=== PATIENT | female | born 1965 | race Caucasian/White ===

== ENCOUNTER → 2023-04-25 14:10 | Outpatient (REF) | payer OTHER, SELFPAY | LOC: WDC 14:10 | PROVIDERS: ATTENDING PHYSICIAN Nurse Practitioner Adult Health | DX: Z12.31 Encounter for screening mammogram for malignant neoplasm of breast (principal) | CPT/HCPCS: 77063; 77067 ==

== ENCOUNTER → 2023-06-06 10:10 | Outpatient (REF) | payer OTHER, SELFPAY | LOC: RAD 10:10 | PROVIDERS: ATTENDING PHYSICIAN Registered Nurse | DX: J18.9 Pneumonia, unspecified organism (principal) | CPT/HCPCS: 71046 ==

== ENCOUNTER → 2023-07-22 07:48 | Outpatient (REF) | payer OTHER, SELFPAY | LOC: RAD 07:48 | PROVIDERS: ATTENDING PHYSICIAN Registered Nurse | DX: J18.9 Pneumonia, unspecified organism (principal) | CPT/HCPCS: 71046 ==

== ENCOUNTER → 2024-03-30 15:43 | Outpatient (REF) | payer OTHER, SELFPAY | LOC: HWRAD 15:43 | PROVIDERS: ATTENDING PHYSICIAN Chiropractor; FAMILY PHYSICIAN Nurse Practitioner Adult Health | DX: M54.12 Radiculopathy, cervical region (principal); M62.40 Contracture of muscle, unspecified site; M99.01 Segmental and somatic dysfunction of cervical region; M99.02 Segmental and somatic dysfunction of thoracic region; M53.2X7 Spinal instabilities, lumbosacral region | CPT/HCPCS: 72050; 72072; 72110 ==

== ENCOUNTER → 2024-04-08 15:02 | Outpatient (REF) | payer OTHER, SELFPAY | LOC: RAD 15:02 | PROVIDERS: ATTENDING PHYSICIAN Nurse Practitioner Adult Health | DX: I65.22 Occlusion and stenosis of left carotid artery (principal); R42 Dizziness and giddiness | CPT/HCPCS: 93880 ==

== ENCOUNTER → 2024-04-30 13:57 | Outpatient (REF) | payer OTHER, SELFPAY | LOC: WDC 13:57 | PROVIDERS: ATTENDING PHYSICIAN Nurse Practitioner Adult Health | DX: Z12.31 Encounter for screening mammogram for malignant neoplasm of breast (principal) | CPT/HCPCS: 77063; 77067 ==

== ENCOUNTER 2024-09-07 08:28 | Inpatient (IN) | payer OTHER, SELFPAY ==
[2024-09-07] VITALS (19 sets, daily range): BP systolic 14–185; BP diastolic 49–100; BMI 27.7
--- NOTE | 2024-09-07 03:57 | ED.GENMED ---
History of Present Illness
<Palomo Lopez, DO - Last Filed: 09/07/24 03:59>
General
Chief Complaint: Abdominal Pain
Source: patient
Exam Limitations: none
Time Seen by Provider: 09/07/24 03:50
History of Present Illness
History of Present Illness:
See MDM
Past History
<Palomo Lopez, DO - Last Filed: 09/07/24 03:59>
Past History
ED Past Medical History: Hypercholesterolemia and Other (Endometriosis, Diverticulitis, C-diff, Menningitis); Negative IDDM or NIDDM
ED Past Surgical History: Bowel resection, Gynecological (OOphorectom with tube on Left) and Other (Uterine ablation, hernia)
Social History
Tobacco: Smoker
Alcohol: Occasional
Drug: None
Personal:
Living: with family
Employment: Employed
Family History
Family History: Hypertension
Phy Exam
<Palomo Lopez, DO - Last Filed: 09/07/24 03:59>
Physical Exam
Physical Exam:
See MDM
Course
<Palomo Lopez, DO - Last Filed: 09/07/24 03:59>
Orders/Labs/Results
Orders:
Orders
09/07/24 03:54
CT Abd/pelvis W Iv Cont Urgent
Comment:
Reason For Exam: upper abd pain, nausea
0.9% Sodium Chloride 1000 ml [Nss] 1,000 ml IV BOLUS
HYDROmorphone [Dilaudid] 0.5 mg IV NOW STA
Ondansetron Injectable [Zofran] 4 mg IV NOW STA
09/07/24 05:18
Complete Blood Count/With Diff Urgent
Comprehensive Metabolic Panel Urgent
Lipase Urgent
HYDROmorphone [Dilaudid] 1 mg IV NOW STA
09/07/24 Breakfast
NPO
Allow oral meds: Yes
Allow clear liquids: Sips of Clears
09/07/24 07:19
Ketorolac [Toradol] 15 mg IV NOW STA
Pantoprazole [Protonix IV] 40 mg IV NOW STA
09/07/24 07:49
Admit/Transfer Patient As Directed
Co-Sign Provider:
Level of Care: Inpatient admission
Assign to:: Medical/Surgical
Physician / Group: Cleop[facility]
Diagnosis: Intractable abdominal pain
Reason for Hospitalization: GI consult, pain relief.
Expected length of stay greater than two midnights?: Yes
ELOS- Estimated Length of Stay in days: 2
I certify the patient meets the requirements for IP care: Yes
PRN Pain Medication Management As Directed
May give lesser potent ordered pain med per pt: Yes
preference::
Protocol:: Medication orders for pain may be administered in a
manner that supports deferring to patient preference
when the pt is:
- Requesting an ordered lesser potent pain medication.
Least to most potent pain medications are defined
as: acetaminophen < NSAID < tramadol < opioids
(morphine, oxycodone, hydromorphone).
- Requesting a lesser dose of the same medication IF
ORDERED.
- Requesting a less intrusive route of administration
if both routes are prescribed by the provider (PO <
IV).
09/07/24 07:50
Code Status As Directed
Resuscitation Status: Full Code
09/07/24 09:01
HYDROmorphone [Dilaudid] 1 mg IV Q3HPRN PRN
Lactated Ringers [Lr] 1,000 ml IV 120 mls/hr
Ondansetron Injectable [Zofran] 4 mg IV Q6HPRN PRN
09/07/24 09:01
GASTROINTESTINAL CONSULT Routine
Consulting Provider: Meaghan Bai
Was physician already notified: Yes
Activity As Directed
Activity Level: Ambulate
DX Deep Vein Thrombosis Video Routine
09/07/24 18:00
Enoxaparin Sodium [Lovenox] 40 mg SC QPM
09/07/24 20:00
Pantoprazole [Protonix IV] 40 mg IV Q12
09/08/24 06:00
Comprehensive Metabolic Panel IN AM
Abnormal Lab Results
09/07/24
05:18
MPV 10.5 H fL
(7.4-10.4)
Absolute Neuts (auto) 7.1 H 10^3/uL
(1.4-6.5)
Absolute Monos (auto) 0.8 H 10^3/uL
(0.1-0.6)
Carbon Dioxide 20 L mmol/L
(22-30)
BUN 18 H mg/dl
(7-17)
Glucose 100 H mg/dl
(70-99)
09/07/24 05:18
09/07/24 05:18
Vital Signs
Initial and Last Documented VS:
Initial Vital Signs
Pulse Resp BP Pulse Ox
90 28 178/78 100
09/07/24 03:27 09/07/24 03:27 09/07/24 03:27 09/07/24 03:27
Last Documented Vital Signs
Pulse Resp BP Pulse Ox
104 16 121/69 97
09/07/24 10:02 09/07/24 10:02 09/07/24 10:02 09/07/24 10:02
<Bill Adhikari MD - Last Filed: 09/07/24 10:48>
Orders/Labs/Results
Orders:
Orders
09/07/24 03:54
CT Abd/pelvis W Iv Cont Urgent
Comment:
Reason For Exam: upper abd pain, nausea
0.9% Sodium Chloride 1000 ml [Nss] 1,000 ml IV BOLUS
HYDROmorphone [Dilaudid] 0.5 mg IV NOW STA
Ondansetron Injectable [Zofran] 4 mg IV NOW STA
09/07/24 05:18
Complete Blood Count/With Diff Urgent
Comprehensive Metabolic Panel Urgent
Lipase Urgent
HYDROmorphone [Dilaudid] 1 mg IV NOW STA
09/07/24 Breakfast
NPO
Allow oral meds: Yes
Allow clear liquids: Sips of Clears
09/07/24 07:19
Ketorolac [Toradol] 15 mg IV NOW STA
Pantoprazole [Protonix IV] 40 mg IV NOW STA
09/07/24 07:49
Admit/Transfer Patient As Directed
Co-Sign Provider:
Level of Care: Inpatient admission
Assign to:: Medical/Surgical
Physician / Group: Cleopatra
Diagnosis: Intractable abdominal pain
Reason for Hospitalization: GI consult, pain relief.
Expected length of stay greater than two midnights?: Yes
ELOS- Estimated Length of Stay in days: 2
I certify the patient meets the requirements for IP care: Yes
PRN Pain Medication Management As Directed
May give lesser potent ordered pain med per pt: Yes
preference::
Protocol:: Medication orders for pain may be administered in a
manner that supports deferring to patient preference
when the pt is:
- Requesting an ordered lesser potent pain medication.
Least to most potent pain medications are defined
as: acetaminophen < NSAID < tramadol < opioids
(morphine, oxycodone, hydromorphone).
- Requesting a lesser dose of the same medication IF
ORDERED.
- Requesting a less intrusive route of administration
if both routes are prescribed by the provider (PO <
IV).
09/07/24 07:50
Code Status As Directed
Resuscitation Status: Full Code
09/07/24 09:01
HYDROmorphone [Dilaudid] 1 mg IV Q3HPRN PRN
Lactated Ringers [Lr] 1,000 ml IV 120 mls/hr
Ondansetron Injectable [Zofran] 4 mg IV Q6HPRN PRN
09/07/24 09:01
GASTROINTESTINAL CONSULT Routine
Consulting Provider: Meaghan Bai
Was physician already notified: Yes
Activity As Directed
Activity Level: Ambulate
DX Deep Vein Thrombosis Video Routine
09/07/24 18:00
Enoxaparin Sodium [Lovenox] 40 mg SC QPM
09/07/24 20:00
Pantoprazole [Protonix IV] 40 mg IV Q12
09/08/24 06:00
Comprehensive Metabolic Panel IN AM
Abnormal Lab Results
09/07/24
05:18
MPV 10.5 H fL
(7.4-10.4)
Absolute Neuts (auto) 7.1 H 10^3/uL
(1.4-6.5)
Absolute Monos (auto) 0.8 H 10^3/uL
(0.1-0.6)
Carbon Dioxide 20 L mmol/L
(22-30)
BUN 18 H mg/dl
(7-17)
Glucose 100 H mg/dl
(70-99)
09/07/24 05:18
09/07/24 05:18
Vital Signs
Initial and Last Documented VS:
Initial Vital Signs
Pulse Resp BP Pulse Ox
90 28 178/78 100
09/07/24 03:27 09/07/24 03:27 09/07/24 03:27 09/07/24 03:27
Last Documented Vital Signs
Pulse Resp BP Pulse Ox
104 16 121/69 97
09/07/24 10:02 09/07/24 10:02 09/07/24 10:02 09/07/24 10:02
<Palomo Lopez, - Last Filed: 09/07/24 03:59>
MDM/Problems Addressed
Differential Diagnosis Includes:
Note:
CHIEF COMPLAINT(S)
Abdominal pain.
HISTORY OF PRESENT ILLNESS
The patient is a 58-year-old female presenting with severe abdominal pain. She reported the onset of the pain around 8:30 PM. The patient went to bed at 9:00 PM and fell asleep briefly for about 15 minutes before waking up due to intense pain which
has not subsided since. She describes this episode as significantly worse than a previous similar experience post-surgery three years ago for diverticulitis. The pain is described as a higher abdominal pain. She denies passing gas and reports severe
nausea but has not vomited.
PAST SURGICAL HISTORY
Diverticulitis removed with no current known complications until this episode.
PHYSICAL EXAM
General: Mildly uncomfortable
HEENT: protecting airway
Neck: appears supple
CV: No evidence of cyanosis
Resp: No accessory muscle use
Abd: Non-distended. Generalized abdominal pain. No rebound
Extremities: No deformities
Neuro: alert
Psych: uncomfortable and anxious
Skin: Intact
PLAN
Administer pain medication (Dilaudid) and antiemetic (Ondansetron). Initiate fluids. Schedule a computed tomography (CT) scan to evaluate for possible intestinal blockage.
DIFFERENTIAL DIAGNOSIS
The Differential Diagnosis includes, in no particular order and is not limited to:
1. Intestinal blockage
2. Adhesions from past surgery
3. Small bowel obstruction
4. Gastritis
5. Peptic ulcer disease
6. Pancreatitis
7. Gastroenteritis
8. Diverticulitis
9. Bowel ischemia
10. Gallstones
<Palomo Lopez, - Last Filed: 09/07/24 03:59>
*Pulse Oximetry
SaO2: 100
Oxygen Mode of Delivery: Room air
<Bill Adhikari MD - Last Filed: 09/07/24 10:48>
*Pulse Oximetry
Patient hypoxic: no
*Critical Care Note
Total Time (30-74mins, 75-104mins- exclusive of procedures): Not Applicable
<Bill Adhikari MD - Last Filed: 09/07/24 10:48>
Update Note
Update Note:
CT abdomen pelvis report reviewed and discussed with patient. Despite unremarkable CT findings, patient experiencing recurrent significant abdominal pain, requiring multiple medications. Differential diagnosis still includes potential early bowel
obstruction versus severe gastritis versus ulcer versus other etiology. As such, patient will be admitted for further evaluation treatment. Patient may benefit from seeing GI for potential endoscopy, if symptoms persist.
ED Attending Note
<Palomo Lopez DO - Last Filed: 09/07/24 03:59>
-
Portions of this chart may have been created with voice recognition software.� Occasional wrong word or��sound alike� substitutions may have occurred due to the inherent limitations of voice recognition software.
Discharge Plan
Departure
Patient Disposition: Admit
Date of Disposition: 09/07/24
Time of Disposition: 07:26
Admit to: Med/Surg
Presentation/result/management discussed w/ accepting MD/DO: Hospitalist
Discharge Problem:
Intractable lower abdominal pain
Interventions
Interventions:
*Risk Screen - Suicide Last Done: 09/07/24 03:27
*General Assessment Last Done: 09/07/24 03:44
*Neglect/Abuse Screening Last Done: 09/07/24 03:27
*ED- Fall Risk Assessment Last Done: 09/07/24 03:44
*ED COVID-19 Vaccine History Last Done: 09/07/24 05:48
RO-Tvqlfo-Dbbpxtfoai Assessment Last Done: 09/07/24 03:46
[2024-09-07] MEDS: DILAUDID 0.5 MG IV (04:00)
[2024-09-07] MEDS: NSS 1000 IV (04:00)
[2024-09-07] MEDS: ZOFRAN 4 MG IV ×3 (04:00→19:19)
[2024-09-07] MEDS: DILAUDID 1 MG IV ×5 (05:20→23:25)
[2024-09-07 05:30] LABS: Hematocrit 38.9 % (37.0-47.0); Hemoglobin 13.5 g/dL (12.0-16.0); Mean Corp Hgb Conc. 34.7 g/dL (33.0-37.0); Mean Corpuscular Volume 88.6 fL (81.0-99.0); Nucleated Red Blood Cells % 0 %; Platelet Count 243 10^3/uL (130-400); Red Cell Dist. Width 12.8 % (11.5-14.5)
[2024-09-07 06:11] LABS: ALT (SGPT) 17 U/L (0-35); AST (SGOT) 26 U/L (14-36); Albumin 4.7 g/dl (3.5-5.0); Alkaline Phosphatase 61 U/L (38-126); Blood Urea Nitrogen 18 mg/dl (7-17); Calcium 9.6 mg/dl (8.4-10.2); Carbon Dioxide 20 mmol/L (22-30); Chloride 106 mmol/L (98-107); Estimated Creatinine Clearance 72 ml/min; Glucose 100 mg/dl (70-99); Lipase 106 U/L (23-300); Potassium 4.4 mmol/L (3.5-5.1); Sodium 137 mmol/L (135-145); Total Protein 7.4 g/dl (6.3-8.2); eGFR > 60.00
[2024-09-07] MEDS: TORADOL 15 MG IV (07:47)
[2024-09-07] MEDS: PROTONIX IV 40 MG IV ×2 (07:47→19:18)
--- NOTE | 2024-09-07 07:53 | HPS.HSE ---
Family Physician
-
Family Physician: JOHN Giordano
Chief Complaint
-
Severe abdominal pain, nausea
History of Present Illness
58-year-old female was in her usual state of health yesterday but developed sudden onset of epigastric abdominal pain and nausea around 8 to 9 PM last night. This was about 2 to 3 hours after eating dinner. She did a core workout after dinner and
then 45 minutes later started having abdominal pain with nausea.
Denies similar symptoms in the past. Denies melena or hematochezia. Vomited in the emergency room after IV Dilaudid, but did not vomit at home.
Denies use of NSAIDs.
Medical History
Past Medical History
Past Medical History: Reports Other
Additional Past Medical History:
GERD
Colon polyps
Diverticulosis
Internal hemorrhoids
Erosive gastropathy
Essential hypertension
Mixed hyperlipidemia
Seasonal allergies
Bilateral carotid stenosis
Anxiety disorder
Past Surgical History: Reports Other
Additional Past Surgical History:
Robotic sigmoid colectomy -June 2022
Left-sided salpingo-oophorectomy
Inguinal hernia repair
Uterine ablation
Social History
Tobacco: Smoker
Alcohol: Occasional
Drug: None
Family History
Family History: Not pertinent
Allergies / Home Medications
Allergies reflects when Allergies were last updated in [facility].
Home Medications with original date entered in [facility]
Allergy/Medication List:
Allergies
Allergy/AdvReac Type Severity Reaction Status Date / Time
morphine Allergy red,itchy Verified 09/07/24 03:29
bumps on
arm (IV)
Home Medications
pantoprazole 40 mg tablet,delayed release 40 mg PO DAILY #14 tabs 03/26/18
Probiotic 1 tab PO DAILY Gastrointestinal issue 06/06/22
Vitamin D3 2 tab PO DAILY Supplement 06/06/22
calcium 1 tab PO DAILY Supplement 06/06/22
lisinopril 5 mg tablet 5 mg PO DAILY Blood pressure 06/06/22
rosuvastatin 10 mg tablet (Crestor) 10 mg PO DAILY High cholesterol 06/06/22
acetaminophen 325 mg tablet 650 mg (2 x 325 mg) PO Q4HPRN PRN mild pain #1 tab 06/23/22
ibuprofen 200 mg tablet 400 - 600 mg (2 - 3 x 200 mg) PO Q6HPRN PRN moderate pain #1 tab 06/23/22
oxycodone 5 mg tablet 5 - 10 mg (1 - 2 x 5 mg) PO Q4HPRN PRN breakthrough/severe pain #30 tabs 06/23/22
oxycodone 5 mg tablet 5 mg PO Q8H PRN Pain #10 tabs 02/20/23
valacyclovir 1 gram tablet 1,000 mg PO TID #21 tabs 02/20/23
Review of Systems
-
History Source: Patient
A 12 point ROS was completed and negative except as noted: Yes
Physical Exam
Vital Signs
Vital Signs
Pulse Resp BP Pulse Ox
90 28 154/80 100
09/07/24 03:27 09/07/24 03:27 09/07/24 07:00 09/07/24 07:00
Physical Exam
General: Well Developed, Well Nourished, Appears in Distress and Pain
HEENT: NormoCephalic, Anicteric and Moist mucous membranes
Respiratory: Clear
Cardiac: S1/S2 and Regular Rhythm
GI: Soft, Non Distended and Tender (Epigastric tenderness without guarding)
Genito-urinary: Deferred by me
Musculoskeletal: No Clubbing, No Cyanosis and No Edema
Skin: Warm and Dry
Neuro: AO x 3
Hematologic/Lymphatic: No Lymphadenopathy
Psych: Agitated
Laboratory Results
-
09/07/24 05:18
09/07/24 05:18
Laboratory Results
Total Bilirubin 1.2 mg/dl (0.2-1.3) 09/07/24 05:18
AST 26 U/L (14-36) 09/07/24 05:18
ALT 17 U/L (0-35) 09/07/24 05:18
Alkaline Phosphatase 61 U/L (38-126) 09/07/24 05:18
Lipase 106 U/L (23-300) 09/07/24 05:18
Impression/Plan
-
Intractable epigastric abdominal pain -unclear etiology thus far. Lipase normal, CT with IV contrast normal. Admit to [facility]. Keep n.p.o., IV fluids, analgesics. IV Protonix, Zofran. Consult GI to consider EGD.
Differential diagnosis of peptic ulcer disease versus other etiology. Doubt mesenteric ischemia or vascular etiology.
Erosive gastropathy noted on prior EGD from 2019.
Normal anion gap metabolic acidosis -bicarb 20. Anion gap 11. Should improve with resuscitation.
Essential hypertension -currently uncontrolled blood pressure due to pain. On lisinopril at home.
Hyperlipidemia -rosuvastatin.
Tobacco dependence
Full code
--- NOTE | 2024-09-07 09:05 | EDRN ---
Dr. Richardson CASTANEDA MD in to see pt
--- NOTE | 2024-09-07 09:15 | EDRN ---
Pt OOB to [facility].
[2024-09-07] MEDS: LR 1000 IV ×2 (10:01→19:07)
--- NOTE | 2024-09-07 10:57 | CON.GI ---
Addendum entered and electronically signed by Meaghan Bai DO 09/07/24 12:25:
The patient was seen and examined by me independently in collaboration with the nurse practitioner.
Past medical history/social history/medications/allergies/family history reviewed.
Lab data and imaging data reviewed.
58 y.o. female admitted with intractable abdominal pain, acute onset last night, about 3 hours following dinner. Denies history of biliary colic. She then started experiencing nausea with nonbloody emesis. She moves her bowels regularly, small BM
this morning, no improvement in pain. No blood thinners or NSAID use. No recent steroids. Previously on a GLP-1, stopped taking 1 month ago.
Afbrile, nomortensive
No leukocytosis
LFTs WNL. Lipase normal.
CT A/P w/ IV contrast: Fluid seen within the stomach. Prior rectosigmoid anastamosis. No abnoramlity seen in the gallbaldder, spleen, pancreas. No biliary ductal dilation.
Unclear etiology of severe abdominal pain. Her story is suspicious for GB/biliary pathology, however, CT unremarkable and normal LFTs. She has no risk factors for PUD. Lipase WNL.
A/P:
-PPI IV BID
-zofran prn
-NPO for EGD today
-if EGD unremarkable, recommend MRI/MRCP
Original Note:
Consultation
-
Date/Time Consultation Requested: 09/07/24 0900
Date/Time Consultation Performed: 09/07/24 1100
Requesting Provider: Anup Whelan DO
Performing Provider: JOHN Chacon, Maria De Jesus Bai DO
Reason for Consultation: abdominal pain
Medical History
Chief Complaint / HPI
Chief Complaint: abdominal pain
History of Present Illness:
Pt is a 58yo with hx endometriosis with multiple [employer] interventions in past, diverticulitis with recurrent disease and sigmoid resection in 2022, colon polyps, GERD, HTN, hyperlipidemia, prior C-diff 2015, meningitis, lung nodule with onset of
abdominal pain 7/7 PM after eating dinner. On admission noted with stable CBC and chemistry with normal LFT's and lipase. Pt completed CT on admission with IV contrast only with no acute abnormality prior rectosigmoid anastomosis. Markedly limited
evaluation of intestinal tract without oral contrast. No intestinal obstruction, free air or right lower quadrant inflammatory changes. Possible 0.3 cm nodule partially included in the right lower lobe, new.
In review with patient she denies any prior episode similar. She did recently take Seglitide for 2 months with last dose 1 month ago with minimal wt loss and stopped due to cost. She admits to chronic GERD on PPI. She did have some nausea and
vomiting after onset of pain but no recurrent vomiting. Pain initially was 10/10 now /10. No diarrhea, constipation or rectal bleeding. She denies NSAID use. hx colonoscopy 2018 sal[facility] - to TI, good prep, congested appendiceal orifice, 8mm
polyp TC, 2 mm polyp DC, 2 2-3 mm polyp rectosigmoid, diverticulosis, IH bx HP and SS adenoma. EGD 07/2018- Normal examined duodenum - Erosive gastropathy. Small hiatal hernia- Z-line variable, 35 cm from the incisors No gross lesions in
esophagus. bx neg Hpylori.
Past Medical History
Past Medical History: GERD, HTN, Hypercholesterolemia and Other (diverticulitis, spontaneous pneumothorax with prior chest tube , headache, c-diff diarrhea, depression/anxiety, meningitis , hx lung nodule, colon polyps)
Past Surgical History: Bowel Resection (sigmoid resection 2022 ), Gynecological (LPS/LSO +RT cystectomy for endometriosis with Dr. Everett 2012, conization of cervix 1989, endometrial balloon ablation), Orthopedic (femur repair 2012 , hand surgery
) and Other (hernia repair )
Social History
Tobacco: Former Smoker (quit 04/2024 )
Alcohol: Occasional (1-2 drinks 3-4 days per week)
Drug: None
Personal: Partner
Living: With Family
Employment: Employed
Family History
Family History: Other (neice with panc [place])
Allergies / Home Medications
Allergy/AdvReac Type Severity Reaction Status Date / Time
morphine Allergy red,itchy Verified 09/07/24 09:21
bumps on
arm (IV)
�Medication �Instructions �Recorded
pantoprazole 40 mg tablet,delayed 40 mg PO DAILY #14 tabs 03/26/18
release
Lactobac no.2-Bifidobac no.1-S. 1 cap PO DAILY Gastrointestinal 06/06/22
thermo 112.5 billion cell capsule issue ##0
(Visbiome)
calcium carbonate 500 mg PO DAILY Supplement ##0 06/06/22
cholecalciferol (vitamin D3) 25 25 mcg PO DAILY Supplement ##0 06/06/22
mcg (1,000 unit) tablet (Vitamin
D3)
acetaminophen 325 mg tablet 650 mg (2 x 325 mg) PO Q4HPRN PRN 06/23/22
mild pain #1 tab
atorvastatin 10 mg tablet (Lipitor) 10 mg PO DAILY 09/07/24
lisinopril 10 mg tablet 10 mg PO DAILY 09/07/24
magnesium oxide 400 mg PO DAILY 09/07/24
Review of Systems
-
History Source: Patient
Constitutional: Reports Weight Loss (minimal with recent GPL1 )
EENT: Reports No Symptoms
Respiratory: Reports No Symptoms
Cardiac: Reports No Symptoms
Abdomen/GI: Reports Abdominal Pain, Nausea and Vomiting
: Reports No Symptoms
Musculoskeletal: Reports No Symptoms
Skin: Reports No Symptoms
Neurological: Reports Weakness
Endocrine: Reports No Symptoms
Hematologic/Lymphatic: Reports No Symptoms
Vital Signs
Pulse Resp BP Pulse Ox
104 16 121/69 97
09/07/24 10:02 09/07/24 10:02 09/07/24 10:02 09/07/24 10:02
Physical Exam
Exam
General: Well Developed, Well Nourished and No Apparent Distress
HEENT: Normocephalic and Anicteric
Respiratory: Clear
Cardiac: Other (tachy)
GI: Soft, Non Distended and Tender (epigastric -- minimal )
Musculoskeletal: No Clubbing and No Cyanosis
Skin: Warm and Dry
Neuro: Awake, Alert and AO x 3
Psych: Calm
Results
WBC 10.5 10^3/uL (4.8-10.8) 09/07/24 05:18
Hgb 13.5 g/dL (12.0-16.0) 09/07/24 05:18
Hct 38.9 % (37.0-47.0) 09/07/24 05:18
MCV 88.6 fL (81.0-99.0) 09/07/24 05:18
Plt Count 243 10^3/uL (130-400) 09/07/24 05:18
Absolute Neuts (auto) 7.1 10^3/uL (1.4-6.5) H 09/07/24 05:18
Sodium 137 mmol/L (135-145) 09/07/24 05:18
Potassium 4.4 mmol/L (3.5-5.1) 09/07/24 05:18
Chloride 106 mmol/L (98-107) 09/07/24 05:18
Carbon Dioxide 20 mmol/L (22-30) L 09/07/24 05:18
BUN 18 mg/dl (7-17) H 09/07/24 05:18
Creatinine 0.8 mg/dL (0.6-1.0) 09/07/24 05:18
Calcium 9.6 mg/dl (8.4-10.2) 09/07/24 05:18
Total Bilirubin 1.2 mg/dl (0.2-1.3) 09/07/24 05:18
AST 26 U/L (14-36) 09/07/24 05:18
ALT 17 U/L (0-35) 09/07/24 05:18
Alkaline Phosphatase 61 U/L (38-126) 09/07/24 05:18
Lipase 106 U/L (23-300) 09/07/24 05:18
Diagnostic Image Results:
09/07/24 CT Abd/pelvis W Iv Cont
No acute abnormality throughout the abdomen and pelvis.
Prior rectosigmoid anastomosis. Markedly limited evaluation of intestinal tract without oral contrast. No intestinal obstruction, free air or right lower quadrant inflammatory changes.
Possible 0.3 cm nodule partially included in the right lower lobe, new.
The [facility] Pulmonary Nodule Advisory Board will be automatically informed of the findings.
Prior GI Procedures:
EGD: 07/2018- Normal examined duodenum - Erosive gastropathy. Small hiatal hernia- Z-line variable, 35 cm from the incisors No gross lesions in esophagus. bx neg Hypylori
Colonoscopy: 2018 sal[facility] - to TI, good prep, congested appendiceal orifice, 8mm polyp TC, 2 mm polyp DC, 2 2-3 mm polyp rectosigmoid, diverticulosis, IH bx HP and SS adenoma.
Assessment / Plan
-
Pt is a 58yo with hx endometriosis with multiple [employer] interventions in past, diverticulitis with recurrent disease and sigmoid resection in 2022, colon polyps, GERD, HTN, hyperlipidemia, prior C-diff 2015, meningitis, lung nodule with onset of
abdominal pain 7/7 PM after eating dinner. On admission noted with stable CBC and chemistry with normal LFT's and lipase. Pt completed CT on admission with IV contrast only with no acute abnormality prior rectosigmoid anastomosis. Markedly limited
evaluation of intestinal tract without oral contrast. No intestinal obstruction, free air or right lower quadrant inflammatory changes. Possible 0.3 cm nodule partially included in the right lower lobe, new. In review with patient she denies any
prior episode similar. She did recently take Seglitide for 2 months with last dose 1 month ago with minimal wt loss and stopped due to cost. She admits to chronic GERD on PPI. She did have some nausea and vomiting after onset of pain but no
recurrent vomiting. Pain initially was 10/10 now 03/12.. She denies NSAID use. EGD 07/2018- Normal examined duodenum - Erosive gastropathy. Small hiatal hernia- Z-line variable, 35 cm from the incisors No gross lesions in esophagus. bx neg
Hpylori.
-epigastric pain post prandial
-recent use of GPL1 x 2 months stopped 1 month ago
-hx multiple [employer] procedures for endometriosis, prior sigmoid resection for diverticular disease
-GERD with hx erosive gastropathy on prior EGD
-ETOH use several drinks per week
other med problems:
-HTN
-hyperlipidemia
-c-diff
-hx meningitis
-lung nodule
-hx hemorrhoids
hx colon polyps
PLAN:
etiology of pain biliary though normal LFT's and lipase but recent GPL1 use, PUD/gastropathy vs less likely obstructive related with no further vomiting and stable CT
plan for EGD today
if neg trial diet
repeat LFT's and lipase in AM if any increased consider MRI
cont PPI
pain control
pt aware of lung nodule-- has noted in past - copy of report given to pt
-
-
Thank you for consultation and allowing me to participate in the patient's care. Please call the construction representative GI physician during the after hours with any questions or concerns.
--- NOTE | 2024-09-07 11:23 | EDRN ---
[facility] [employer] in room w/ pt at this time.
--- NOTE | 2024-09-07 12:27 | EDRN ---
Pt states pain increasing.
--- NOTE | 2024-09-07 12:29 | EDRN ---
IV in L AC still working though is very positional and IV fluids on pump keeps alarming so new IV started in R FA.
--- NOTE | 2024-09-07 12:50 | EDRN ---
Addendum entered by Nela Bolanos RN 09/07/24 13:41:
Claribel said pt going to GI lab for EGD.
Original Note:
Report given to Claribel BENTON in GI lab at this time.
--- NOTE | 2024-09-07 13:06 | CM ---
CM reviewed chart and met with pt bedside in ED. Lives with SO of 26 years in [place] home, no EMY, 5 steps to BA
Independent in ADLs, personal care and ambulation at baseline. No DME.
HX VN many years ago when she had Meningitis, no hx SNF
PCP: Sowmya Nunez
Pharmacy: [facility]
Discharge plan: Anticipate home, watch for needs
--- NOTE | 2024-09-07 14:35 | EDRN ---
Pt is not returning from GI LAB to ED and will be admitted to hospital bed from GI LAB.
--- NOTE | 2024-09-07 15:18 | PTCARENOTE ---
Pt had 1/2 cup of water and started to have same abd. pain that she came in with. Stated 5 out of 10. Medicated with 1mg of Dilaudid. Will continue to monitor
[2024-09-07] MEDS: LOVENOX 40 MG SC (17:15)
[2024-09-07] MEDS: NSS (PRESERVATIVE FREE) 10 ML IV (19:18)
[2024-09-08] MEDS: ZOFRAN 4 MG IV ×3 (02:44→19:58)
[2024-09-08] MEDS: DILAUDID 1 MG IV ×6 (02:44→23:14)
[2024-09-08 06:00] VITALS: BMI 27.3
[2024-09-08 07:59] VITALS: BP 128/59
[2024-09-08] MEDS: LR 1000 IV ×2 (08:28→20:46)
[2024-09-08] MEDS: NSS (PRESERVATIVE FREE) 10 ML IV ×2 (08:30→21:08)
[2024-09-08] MEDS: PROTONIX IV 40 MG IV ×2 (08:31→20:39)
[2024-09-08 08:49] LABS: ALT (SGPT) 12 U/L (0-35); AST (SGOT) 18 U/L (14-36); Albumin 3.5 g/dl (3.5-5.0); Alkaline Phosphatase 53 U/L (38-126); Blood Urea Nitrogen 8 mg/dl (7-17); Calcium 8.5 mg/dl (8.4-10.2); Carbon Dioxide 23 mmol/L (22-30); Chloride 108 mmol/L (98-107); Estimated Creatinine Clearance 82 ml/min; Glucose 59 mg/dl (70-99); Lipase 28 U/L (23-300); Potassium 3.8 mmol/L (3.5-5.1); Sodium 135 mmol/L (135-145); Total Protein 5.8 g/dl (6.3-8.2); eGFR > 60.00
[2024-09-08 09:07] LABS: Hematocrit 32.5 % (37.0-47.0); Hemoglobin 11.1 g/dL (12.0-16.0); Mean Corp Hgb Conc. 34.2 g/dL (33.0-37.0); Mean Corpuscular Volume 91.3 fL (81.0-99.0); Red Cell Dist. Width 13.0 % (11.5-14.5)
[2024-09-08 09:52] LABS: Platelet Count 163 10^3/uL (130-400)
--- NOTE | 2024-09-08 11:27 | W.PN.GI.CBS2 ---
Addendum entered and electronically signed by Meaghan Bai DO 09/08/24 14:00:
The patient was seen and examined by me independently in collaboration with the nurse practitioner.
Past medical history/social history/medications/allergies/family history reviewed.
Lab data and imaging data reviewed.
Patient seen in follow-up. She endorsed improvement in pain, but only after getting pain meds. EGD largely unremarkable, some mild gastritis, bx pending, mucosal changes suspicious for short-segment barretts esophagus, bx pending. Otherwise, no
identifiable source of her abdominal pain. MRI/MRCP completed which returned normal. Lipase and LFTs normal.
At this point, unclear etiology of symptoms, possibly some gas related pain as now she has some radiation down her RLQ of her abdomen.
Plan:
-gas x prn
-advance diet as tolerated
-analgesia prn
GI will sign off, please call with questions
Original Note:
Today's Communication / Plan
-
etiology of pain biliary though normal LFT's and lipase but recent GPL1 use, PUD/gastropathy vs less likely obstructive related with no further vomiting and stable CT
s/p stable EGD with bx pending
for MRI soon
if neg trial diet, if + stool then will need ERCP
LFT's and lipase remain normal
cont PPI
pain control
Assessment / Plan
-
Pt is a 58yo with hx endometriosis with multiple [employer] interventions in past, diverticulitis with recurrent disease and sigmoid resection in 2022, colon polyps, GERD, HTN, hyperlipidemia, prior C-diff 2016, meningitis, lung nodule with onset of
abdominal pain 7/7 PM after eating dinner. On admission noted with stable CBC and chemistry with normal LFT's and lipase. Pt completed CT on admission with IV contrast only with no acute abnormality prior rectosigmoid anastomosis. Markedly limited
evaluation of intestinal tract without oral contrast. No intestinal obstruction, free air or right lower quadrant inflammatory changes. Possible 0.3 cm nodule partially included in the right lower lobe, new. In review with patient she denies any
prior episode similar. She did recently take Seglitide for 2 months with last dose 1 month ago with minimal wt loss and stopped due to cost. She admits to chronic GERD on PPI. She did have some nausea and vomiting after onset of pain but no
recurrent vomiting. Pain initially was 10/10 now 03/12.. She denies NSAID use. EGD 07/2018- Normal examined duodenum - Erosive gastropathy. Small hiatal hernia- Z-line variable, 35 cm from the incisors No gross lesions in esophagus. bx neg
Hpylori.
09/07 EGD bai - Z-line irregular, 35 cm from the incisors. Biopsied. - Erythematous mucosa in the gastric body and antrum.
Biopsied. - Normal duodenal bulb, first portion of the duodenum and second portion of the duodenum. Biopsied.
-epigastric pain post prandial
-recent use of GPL1 x 2 months stopped 1 month ago
-hx multiple [employer] procedures for endometriosis, prior sigmoid resection for diverticular disease
-GERD with hx erosive gastropathy on prior EGD
-ETOH use several drinks per week
other med problems:
-HTN
-hyperlipidemia
-c-diff
-hx meningitis
-lung nodule
-hx hemorrhoids
hx colon polyps
PLAN:
etiology of pain biliary though normal LFT's and lipase but recent GPL1 use, PUD/gastropathy vs less likely obstructive related with no further vomiting and stable CT
s/p stable EGD with bx pending
for MRI soon
if neg trial diet, if + stool then will need ERCP
LFT's and lipase remain normal
cont PPI
pain control
Subjective
Subjective
Date of Service: September 08, 2024
still with pain but feeling improved, NPO for MRI soon
Objective
Data Reviewed
Laboratory Data:
Laboratory Results
09/08/24 07:44
09/08/24 07:44
Laboratory Results
Total Bilirubin 1.2 mg/dl (0.2-1.3) 09/08/24 07:44
AST 18 U/L (14-36) 09/08/24 07:44
ALT 12 U/L (0-35) 09/08/24 07:44
Alkaline Phosphatase 53 U/L (38-126) 09/08/24 07:44
Lipase 28 U/L (23-300) 09/08/24 07:44
Vital Signs and I&O:
Vital Signs
Temp Pulse Resp BP Pulse Ox
98.9 F 96 16 128/59 94
09/08/24 07:59 09/08/24 07:59 09/08/24 07:59 09/08/24 07:59 09/08/24 08:40
I&O
09/07/24 09/08/24 09/09/24
06:59 06:59 06:59
Intake Total 1120 / 1120
Balance 1120 / 1120
Physical Exam
Physical Exam
HEENT: Anicteric and Moist mucous membranes
Cardiology: Normal Sinus Rhythm
Pulmonary: Clear
GI: Soft, Non Distended and Tender (mild epigastric pain)
Extremities: No Edema
Neuro: Non Focal
--- NOTE | 2024-09-08 13:06 | W.PN.HOSP.TC ---
Addendum entered and electronically signed by Anup Whelan DO 09/08/24 16:03:
Abdominal MRI without significant abnormality.
GI recommends simethicone and advancement of diet.
If tolerates diet and stable can discharge. Discussed with nursing.
Original Note:
Today's Communication/Plan
-
Await MRCP report
Assessment / Plan
Assessment / Plan
Gen-AAOx3, NAD
HEENT-NC, AT, anicteric, clear oral mm
Neck-supple
CV-reg, no M, +S1/S2
Lungs-clear B/L
Abd-soft, nondistended, mild epigastric tenderness
Ext-no edema
Musculoskeletal-no cyanosis, clubbing
Skin-warm and dry
Neuro-grossly non-focal
Psych-calm, cooperative
Intractable epigastric abdominal pain -unclear etiology thus far. Lipase normal, CT with IV contrast normal. LFTs normal.
EGD 09/07 shows erythematous mucosa in the gastric body and antrum. Biopsied.
MRCP pending.
Still requiring frequent doses of IV Dilaudid for pain control.
Normal anion gap metabolic acidosis -resolved.
Essential hypertension -stable.
Hyperlipidemia -rosuvastatin.
Tobacco dependence
Full code
Anticipated Discharge: Within 24 hours
Subjective/Interval History
-
Date of Service: September 08, 2024
Patient seen and examined. Still with 5 out of 10 abdominal pain but looks and feels more comfortable than yesterday.
Objective Data
-
Labs:
Laboratory Results
09/08/24
07:44
WBC 6.4
Hgb 11.1 L
Hct 32.5 L
Plt Count 163 D
Sodium 135
Potassium 3.8
Chloride 108 H
Carbon Dioxide 23
BUN 8
Creatinine 0.7
Glucose 59 L
Calcium 8.5
Total Bilirubin 1.2
AST 18
ALT 12
Alkaline Phosphatase 53
Vital Signs:
Vital Signs
Temp Pulse Resp BP Pulse Ox
98.9 F 96 16 128/59 94
09/08/24 07:59 09/08/24 07:59 09/08/24 07:59 09/08/24 07:59 09/08/24 08:40
I&O
09/07/24 09/08/24 09/09/24
06:59 06:59 06:59
Intake Total 1120 / 1120
Balance 1120 / 1120
Review of Systems
-
History Source: Patient
All other systems: Reviewed and negative
[2024-09-08 16:05] VITALS: BP 125/64
[2024-09-08] MEDS: LOVENOX SC (17:03)
--- NOTE | 2024-09-08 17:03 | PTCARENOTE ---
Pt attempted a low residue diet for dinner this evening. Feels like she broke out into a sweat and is slightly nauseated. Would like to see how she does tomorrow morning for breakfast before going home.
[2024-09-08] MEDS: MYLICON 80 MG PO (17:50)
[2024-09-08] MEDS: TYLENOL 650 MG PO (20:39)
[2024-09-08 23:41] VITALS: BP 114/59
[2024-09-09 07:45] VITALS: BP 160/92
[2024-09-09] MEDS: DILAUDID 1 MG IV ×3 (08:26→21:52)
[2024-09-09] MEDS: ZOFRAN 4 MG IV (08:28)
[2024-09-09] MEDS: NSS (PRESERVATIVE FREE) 10 ML IV ×2 (08:28→20:42)
[2024-09-09] MEDS: PROTONIX IV 40 MG IV ×2 (08:28→20:42)
--- NOTE | 2024-09-09 09:53 | W.PN.HOSP.TC ---
Today's Communication/Plan
-
CTA abdomen/pelvis
Colorectal surgery consult
Assessment / Plan
Assessment / Plan
Gen-AAOx3, NAD
HEENT-NC, AT, anicteric, clear oral mm
Neck-supple
CV-reg, no M, +S1/S2
Lungs-clear B/L
Abd-soft, nondistended, mild epigastric tenderness, moderate tenderness in lower quadrants.
Ext-no edema
Musculoskeletal-no cyanosis, clubbing
Skin-warm and dry
Neuro-grossly non-focal
Psych-calm, cooperative
Intractable epigastric abdominal pain -unclear etiology thus far. Lipase normal, CT with IV contrast normal. LFTs normal.
EGD 09/07 shows erythematous mucosa in the gastric body and antrum. Biopsied.
Abdominal MRI without significant findings. GI service has signed off.
Ongoing abdominal pain after eating concerning. Doubt mesenteric ischemia but will check CTA abdomen/pelvis for completeness. Consult colorectal surgery given prior sigmoid colectomy.
Still requiring frequent doses of IV Dilaudid for pain control. Zofran for nausea.
Normal anion gap metabolic acidosis -resolved.
Essential hypertension -stable.
Hyperlipidemia -rosuvastatin.
Tobacco dependence -she quit smoking in April of this year.
Full code
Anticipated Discharge: 24 - 48 hours
Subjective/Interval History
-
Date of Service: September 09, 2024
Patient seen and examined, complaining of post prandial abdominal pain this morning after breakfast. Mild nausea. Did not have significant pain during the night. Rates her pain as a 7 out of 10 currently, was a 2 out of 10 before breakfast.
Objective Data
-
Vital Signs:
Vital Signs
Temp Pulse Resp BP Pulse Ox
98.8 F 90 16 160/92 96
09/09/24 07:45 09/09/24 07:45 09/09/24 07:45 09/09/24 07:45 09/09/24 07:45
I&O
09/08/24 09/09/24 09/10/24
06:59 06:59 06:59
Intake Total 1119 / 0
Balance 1119 / 0
Review of Systems
-
History Source: Patient
All other systems: Reviewed and negative
--- NOTE | 2024-09-09 12:27 | CON.CRS ---
Consultation
-
Date/Time Consultation Requested: 09/09/24 @9:51
Date/Time Consultation Performed: 09/09/24 @11:00
Requesting Provider: Anup Whelan DO
Performing Provider: Morgan Singleton MD
Reason for Consultation: Abdominal pain
Medical History
-
Chief Complaint: Abdominal pain
History of Present Illness:
58-year-old female known to me after undergoing a robotic sigmoid colectomy for recurrent diverticulitis a couple of years ago, who was admitted to the hospital on 09/07/2024 with upper abdominal pain. She states the pain began after eating and was
localized to the epigastric area but radiated to her right lower quadrant. She had nausea but no vomiting. The symptoms have occurred every time she eats solid food. When she drinks liquids she does have some nausea. She has not vomited and she
denies any fevers or chills. She does have a history of GERD and is currently on pantoprazole. Her bowels are regular and she denies abdominal distention but she does feel full.
She has remained afebrile with normal vital signs and a normal white count. On exam she is in no acute distress. She has very minimal tenderness in the epigastrium and no significant tenderness elsewhere. There is no tympany to percussion.
Incisions are well-healed.
A CT scan of the abdomen and pelvis with contrast on 09/07/2024 was unrevealing. Likewise an MRI of the abdomen was normal. An upper endoscopy on 09/07/2024 revealed mild gastritis.
Past Medical History
Past Medical History: GERD, HTN, Hypercholesterolemia, Psychiatric (Depression/anxiety) and Other (History of C. difficile)
Past Surgical History: Bowel Resection (Robotic sigmoid resection 2022), Gynecological (Multiple operations for endometriosis), Hernia Repair and Orthopedic (Right femur repair 2012, hand surgery)
Social History
Tobacco: Former Smoker
Alcohol: Occasional
Living: With Family
Employment: Employed
Family History
Family History: Reviewed & Not Pertinent
Allergies / Home Medications
Allergy/AdvReac Type Severity Reaction Status Date / Time
morphine Allergy red,itchy Verified 09/07/24 09:21
bumps on
arm (IV)
�Medication �Instructions �Recorded �Confirmed �Type
pantoprazole 40 mg tablet,delayed 40 mg PO DAILY #14 tabs 03/26/18 09/07/24 Rx
release
Lactobac no.2-Bifidobac no.1-S. 1 cap PO DAILY Gastrointestinal 06/06/22 09/07/24 History
thermo 112.5 billion cell capsule issue ##0
(Visbiome)
calcium carbonate 500 mg PO DAILY Supplement ##0 06/06/22 09/07/24 History
cholecalciferol (vitamin D3) 25 25 mcg PO DAILY Supplement ##0 06/06/22 09/07/24 History
mcg (1,000 unit) tablet (Vitamin
D3)
acetaminophen 325 mg tablet 650 mg (2 x 325 mg) PO Q4HPRN PRN 06/23/22 09/07/24 Rx
mild pain #1 tab
atorvastatin 10 mg tablet (Lipitor) 10 mg PO DAILY 09/07/24 09/07/24 History
lisinopril 10 mg tablet 10 mg PO DAILY 09/07/24 09/07/24 History
magnesium oxide 400 mg PO DAILY 09/07/24 09/07/24 History
simethicone 80 mg chewable tablet 80 mg PO QIDPRN PRN abdominal pain 09/08/24 Rx
#0 tabs
Review of Systems
-
History Source: Patient
All other systems: Negative unless noted
A 10 point review of systems was completed, and was negative except as per HPI.
Physical Exam
Vital Signs
Temp 98.8 F 09/09/24 07:45
Pulse 90 09/09/24 07:45
Resp Rate 16 09/09/24 07:45
Blood pressure 160/92 09/09/24 07:45
SaO2 96 09/09/24 07:45
09/08/24 09/09/24 09/10/24
06:59 06:59 06:59
Actual Weight 69.967 kg
Body Mass Index (BMI) 27.3
Lab Results / Allergies
09/08/24 07:44
09/08/24 07:44
WBC 6.4 10^3/uL (4.8-10.8) 09/08/24 07:44
Hgb 11.1 g/dL (12.0-16.0) L 09/08/24 07:44
Hct 32.5 % (37.0-47.0) L 09/08/24 07:44
Plt Count 163 10^3/uL (130-400) D 09/08/24 07:44
Abs Immat Gran (auto) 0.0 10^3/uL (0-0.05) 09/07/24 05:18
Neutrophils % 67.7 % (42.2-75.2) 09/07/24 05:18
Allergy/AdvReac Type Severity Reaction Status Date / Time
morphine Allergy red,itchy Verified 09/07/24 09:21
bumps on
arm (IV)
Physical Exam
General: Well Developed, Well Nourished and No Apparent Distress
HEENT: Anicteric
Respiratory: Clear
Cardiac: Regular Rhythm
GI: Soft, Non Distended, Tender (Mild in the epigastrium) and Incisions (Well-healed)
Neuro: Awake and Alert
Data Reviewed
-
CT Scan: Image Personally Visualized and interpreted, Discussed with Physician and Discussed with Patient
MRI: Image Personally Visualized and interpreted, Discussed with Physician and Discussed with Patient
Labs: Labs Reviewed by me, Discussed with Physician and Discussed with Patient
Assessment / Plan
-
Epigastric pain of uncertain etiology.
I reviewed the possibilities and explained there is no indication for surgery at this time. I have ordered an ultrasound to evaluate the gallbladder although there is nothing significant seen on MRI if it is normal, we will arrange for a HIDA scan
with ejection fraction to rule out biliary dyskinesia. Continuing with the PPI for now. All questions answered.
[2024-09-09 15:54] VITALS: BP 146/82
[2024-09-09] MEDS: MYLICON 80 MG PO (17:19)
[2024-09-09] MEDS: LOVENOX 40 MG SC (17:19)
[2024-09-09] MEDS: LR 1000 IV (17:20)
[2024-09-09 23:00] VITALS: BP 138/80
[2024-09-10] MEDS: DILAUDID 1 MG IV ×3 (01:32→10:43)
[2024-09-10] MEDS: LR 1000 IV (06:05)
--- NOTE | 2024-09-10 07:18 | W.PN.CRS1 ---
Today's Communication / Plan
-
HIDA with ejection fraction.
If positive for dyskinesia, will recommend a cholecystectomy (timing to be determined).
Assessment/Plan
-
Epigastric pain
Subjective Data
Subjective Data
Date of Service: September 10, 2024
Still with epigastric pain requiring Dilaudid. Her nausea has improved.
Objective Data
-
Vital Signs
Temp Pulse Resp BP Pulse Ox
98.4 F 80 20 138/80 95
09/09/24 23:00 09/09/24 23:00 09/09/24 23:00 09/09/24 23:00 09/09/24 23:00
Intake & Output
09/09/24 09/10/24 09/11/24
06:59 06:59 06:59
Intake Total 600 / 600
Balance 600 / 600
Intake:
Oral fluids 600 / 600
Other:
Number of approximated MODERATE 1 2
amounts of urine
Lab Results
09/08/24 07:44
09/08/24 07:44
Physical Exam
-
General: No Acute Distress
Abdomen: Soft, Non Distended and Non Tender
Data Reviewed
-
Ultrasound: Image Reviewed and Report Reviewed
[2024-09-10 07:19] VITALS: BP 158/82
[2024-09-10] MEDS: TORADOL 15 MG IV (08:49)
[2024-09-10] MEDS: PROTONIX IV 40 MG IV (08:51)
[2024-09-10] MEDS: NSS (PRESERVATIVE FREE) 10 ML IV (08:51)
--- NOTE | 2024-09-10 09:21 | W.PN.HOSP.TC ---
Today's Communication/Plan
-
Discharge
Assessment / Plan
Assessment / Plan
Gen-AAOx3, NAD
HEENT-NC, AT, anicteric, clear oral mm
Neck-supple
CV-reg, no M, +S1/S2
Lungs-clear B/L
Abd-soft, nondistended, mild epigastric tenderness, moderate tenderness in lower quadrants.
Ext-no edema
Musculoskeletal-no cyanosis, clubbing
Skin-warm and dry
Neuro-grossly non-focal
Psych-calm, cooperative
Intractable epigastric abdominal pain -unclear etiology thus far. Lipase normal, CT with IV contrast normal. LFTs normal.
EGD 09/07 shows erythematous mucosa in the gastric body and antrum. Biopsied.
Abdominal MRI without significant findings. GI service has signed off.
Right upper quadrant ultrasound unremarkable. Diffuse fatty liver noted.
Plan for outpatient HIDA scan with [facility]. Nuclear medicine states that cannot perform study with [facility] in the hospital.
Discussed with colorectal surgery, okay with discharge today with outpatient follow-up. Dr. Singleton to arrange for outpatient HIDA scan with [facility].
Patient okay with discharge plans. Continue analgesics on discharge.
Normal anion gap metabolic acidosis -resolved.
Essential hypertension -stable.
Hyperlipidemia -rosuvastatin.
Tobacco dependence -she quit smoking in April of this year.
Full code
Dispo -discharge today. Outpatient follow-up.
31 minutes spent in discharge process.
Anticipated Discharge: Today
Subjective/Interval History
-
Date of Service: September 10, 2024
Patient seen and examined. Still with epigastric abdominal pain.
Objective Data
-
Vital Signs:
Vital Signs
Temp Pulse Resp BP Pulse Ox
98.3 F 77 18 158/82 96
09/10/24 07:19 09/10/24 07:19 09/10/24 07:19 09/10/24 07:19 09/10/24 07:19
I&O
09/09/24 09/10/24 09/11/24
06:59 06:59 06:59
Intake Total 600 / 600
Balance 600 / 600
Review of Systems
-
History Source: Patient
All other systems: Reviewed and negative
--- NOTE | 2024-09-10 09:26 | W.DS.TRANS ---
DC Summary - [employer]
-
Discharge Instructions:
Discharge Diagnosis/Procedures Abdominal pain
Diet Low Residue
Activity As tolerated
Driving Restrictions As prior to admission
Bathing Restrictions None
Instructions:
Stand-Alone Forms:
Changes to Home Medications: No
Discharge Medications:
DC Medications w/original date entered in [employer]
Lactobac no.2-Bifidobac no.1-S. thermo 112.5 billion cell capsule (Visbiome) 1 cap PO DAILY Gastrointestinal issue ##0 06/06/22
calcium carbonate 500 mg PO DAILY Supplement ##0 06/06/22
cholecalciferol (vitamin D3) 25 mcg (1,000 unit) tablet (Vitamin D3) 25 mcg PO DAILY Supplement ##0 06/06/22
acetaminophen 325 mg tablet 650 mg (2 x 325 mg) PO Q4HPRN PRN mild pain #1 tab 06/23/22
atorvastatin 10 mg tablet (Lipitor) 10 mg PO DAILY 09/07/24
lisinopril 10 mg tablet 10 mg PO DAILY 09/07/24
magnesium oxide 400 mg PO DAILY 09/07/24
simethicone 80 mg chewable tablet 80 mg PO QIDPRN PRN abdominal pain #0 tabs 09/08/24
oxycodone-acetaminophen 5 mg-325 mg tablet (Percocet) 1 - 2 tab PO Q4H PRN severe pain #30 tabs 09/10/24
pantoprazole 40 mg tablet,delayed release 40 mg PO BID #14 tabs 09/10/24
Home Medication Changes
Pending Results: No
--- NOTE | 2024-09-10 11:14 | CM ---
CM reviewed chart, patient seen bedside, for discharge today. Patient denies needs from CM, confirms son will provide transportation home. CM will continue to follow for all discharge planning needs.
Plan; home no needs.
== END 2024-09-10 12:07 | disposition home or self-care (01) | DRG 392 ==
LOC: 4 WEST ACU 08:28
PROVIDERS: Nurse Practitioner Adult Health; ADMITTING PHYSICIAN Hospitalist; CONSULT PHYSICIAN Internal Medicine; EMERGENCY PHYSICIAN Student in an Organized Health Care Education/Training Program; FAMILY PHYSICIAN Nurse Practitioner Adult Health; OTHER PHYSICIAN Surgery
PROC: 0DB88ZX Excision of Small Intestine, Via Natural or Artificial Opening Endoscopic, Diagnostic (ICD-10-PCS; 2024-09-07)
PROC: 0DB78ZX Excision of Stomach, Pylorus, Via Natural or Artificial Opening Endoscopic, Diagnostic (ICD-10-PCS; 2024-09-07)
DX: K21.00 Gastro-esophageal reflux disease with esophagitis, without bleeding (principal); E87.20 Acidosis, unspecified; F17.200 Nicotine dependence, unspecified, uncomplicated; I10 Essential (primary) hypertension; K22.89 Other specified disease of esophagus; K31.89 Other diseases of stomach and duodenum; K29.70 Gastritis, unspecified, without bleeding
CPT/HCPCS: 74177; 74183; 76700; 80053; 83690; 85025; 85027; 88305; 88342; 96361; 96374; 96375; 96376; 99284; 99406; A9575; Q9967

== ENCOUNTER → 2024-10-28 07:47 | Outpatient (REF) | payer OTHER, SELFPAY | LOC: RAD 07:47 | PROVIDERS: ATTENDING PHYSICIAN Surgery; FAMILY PHYSICIAN Nurse Practitioner Adult Health | DX: R10.13 Epigastric pain (principal) | CPT/HCPCS: 78227; A9537; J2805 ==